=== PATIENT | male | born 1965 | race Caucasian/White ===

== ENCOUNTER 2016-11-16 16:58 | Emergency (ER) | payer OTHER ==
[~2016-11-16] VITALS: Ht 175.3 cm; Wt 88.5 kg
[~2016-11-16 16:58] MED LIST: SUBOXONE 8 MG-21 FIL SL; ZANTAC 300300 MG PO; ZOFRAN4 MG PO
[2016-11-16 17:22] VITALS: BP 141/86
--- NOTE | 2016-11-16 18:50 | RADIOLOGY REPORT ---
EXAMINATIONS: CHEST 1 VIEW AND LEFT RIBS CLINICAL INFORMATION: Pain after fall. COMPARISON: None. TECHNIQUE: A PA radiograph of the chest was obtained in addition to several views of the left ribs. FINDINGS: The cardiac silhouette is not enlarged. The mediastinal and hilar contours are unremarkable. There are neither pleural effusions nor pneumothoraces. Evaluation of the lungs is limited secondary to low lung volumes. This likely explains the nonspecific hazy opacification throughout both lung bases. There are lateral left fifth, sixth, eighth, ninth and 10th rib fractures. IMPRESSION: Several lateral left rib fractures. Limited evaluation of the lungs due to low lung volumes.
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
[2016-11-16] MEDS ORDERED: SUBOXONE 8 MG-1 EACH SL (19:18)
[2016-11-16] MEDS ORDERED: ESCITALOPRAM OX10 MG PO (19:19)
== END 2016-11-16 20:06 | disposition short-term general hospital (02) ==
LOC: ERH 16:58
DX: S22.42XA Multiple fractures of ribs, left side, initial encounter for closed fracture (principal); W00.0XXA Fall on same level due to ice and snow, initial encounter; Y93.H1 Activity, digging, shoveling and raking
CPT/HCPCS: 71100-LT; 96374; J1885